=== PATIENT | female | born 1965 | race African-American/Black ===

== ENCOUNTER 2021-01-15 10:42 | Emergency (ER) | payer OTHER ==
[~2021-01-15] VITALS: Ht 152.4 cm; Wt 100.0 kg
[2021-01-15] MEDS ORDERED: GLUCAGON,HUMAN RECOMBINANT 1MG/VIAL IM ONE (13:30)
[2021-01-15 14:52] LABS: BASOPHILS % 0.7 % (0.0-2.0); EOSINOPHILS % 1.8 % (0.0-5.0); HEMATOCRIT. 48.3 % (36.0-48.0); HEMOGLOBIN. 15.8 g/dL (12.0-16.0); LYMPHOCYTES % 45.1 % (20.0-50.0); MEAN CORPUSCULAR HEMOGLOBIN 28.8 pg (28.0-32.0); MEAN CORPUSCULAR VOLUME 88.3 fL (81.0-99.0); MEAN PLATELET VOLUME 9.5 fl (7.4-10.4); MONOCYTES % 5.2 % (2.0-8.0); NEUTROPHILS % 47.2 % (40.0-76.0); PLATELET 239 x1000/uL (130-400); RED BLOOD CELL COUNT 5.48 mill/uL (4.2-5.4); RED CELL DISTRIBUTION WIDTH 14.3 % (11.6-14.6)
[2021-01-15] MEDS: KETOROLAC 15MG/ML VIAL IV ONE ×2 (15:05→15:29)
[2021-01-15 16:28] LABS: CHLORIDE 111 mEq/L (98-107)
[2021-01-15 19:44] VITALS: BP 142/84
== END 2021-01-15 19:49 | disposition home or self-care (01) ==
LOC: ER 10:42
DX: R07.0 Pain in throat (principal); I10 Essential (primary) hypertension
CPT/HCPCS: 36415; 70360; 70490; 80053; 85025; 96372; 99285; J1610; J1885